=== PATIENT | female | born 1975 | race Caucasian/White ===

== ENCOUNTER 2021-03-24 13:55 | Emergency (ER) | payer OTHER, SELFPAY ==
[2021-03-24 15:08] VITALS: BP 150/64; PULSE 80; RESP 16; TEMP 36.8; O2SAT 100; BMI 27.4
[2021-03-24] MEDS: predniSONE 20 MG TABLET 40 MG PO (15:52)
[2021-03-24] MEDS: diphenhydrAMINE HCL 25 MG TABLET 50 MG PO (15:53)
[2021-03-24] MEDS: Famotidine 20 MG TABLET PO (15:53)
--- NOTE | 2021-03-24 16:02 | ED.GENADULT ---
HPI - General Adult General Chief complaint: General Medical Stated complaint: allergic reaction Time Seen by Provider: 03/24/21 15:45 Source: patient Mode of arrival: ambulatory Limitations: no limitations History of Present Illness HPI narrative: 46-year-old female here with itching rash to chest, back and neck for several hours. no pain. Patient denies any new medications, products, foods. No difficulty breathing, difficulty swallowing, abdominal cramping, vomiting or diarrhea. Related Data Previous Rx's Medication Instructions Recorded hydrocortisone 1 appl TOPICAL TID PRN #20 g 03/24/21 hydroxyzine HCl 25 mg PO TID PRN #10 tab 03/24/21 prednisone 40 mg PO DAILY #8 tab 03/24/21 Allergies Allergy/AdvReac Type Severity Reaction Status Date / Time acetaminophen Allergy Unknown UNKNOWN Unverified 08/18/20 14:54 [From TYLENOL PM] Antihistamines - Alkylamine Allergy Unknown UNKNOWN Unverified 08/18/20 14:54 [ANTIHISTAMINES - ALKYLAMINE] aspirin [ASPIRIN] Allergy Unknown HIVES Unverified 08/18/20 14:54 codeine [CODEINE] Allergy Unknown HIVES Unverified 08/18/20 14:54 From TYLENOL PM Allergy Unknown UNKNOWN Uncoded 08/18/20 14:54 Review of Systems Review of Systems: Yes all other systems are reviewed and are negative Constitutional: Constitutional: Reports no additional constitutional complaints, Denies body ache(s), Denies chills, Denies fever(s), Denies headache(s) and Denies weakness Eyes: Eyes: Reports no additional eye complaints and Denies change in vision ENT: Reports system reviewed and no additional complaints, except as documented, Denies dizziness, Denies headache(s), Denies nasal congestion, Denies nasal discharge and Denies neck pain Cardiovascular: Cardiovascular: Reports no additional cardiovascular complaints, Denies chest pain, Denies leg edema and Denies dyspnea Respiratory: Respiratory: Reports no additional respiratory complaints, Denies cough and Denies dyspnea Gastrointestinal: Gastrointestinal: Reports no additional gastrointestinal complaints, Denies abdominal pain, Denies diarrhea, Denies nausea and Denies vomiting Genitourinary: Genitourinary: Reports no additional female genitourinary complaints and Denies urinary incontinence Musculoskeletal: Musculoskeletal: Reports no additional musculoskeletal complaints, Denies back pain, Denies arthralgias, Denies joint swelling, Denies neck pain, Denies numbness and Denies tingling Integumentary/Breasts: Skin/Breast: Reports system reviewed and no additional complaints, except as docu and Reports rash Neurologic: Reports system reviewed and no additional complaints, except as documented, Denies Abnormal speech present, Denies dizziness, Denies headache(s), Denies numbness, Denies tingling and Denies weakness PMF Past Medical History Attestation statement: The following information was validated with the patient. Source: old records reviewed and nursing notes reviewed Social History Social History Advance Directives: No Advance Directives Information Provided: No Physical Exam Vital Signs: Vital Signs: Last Vital Signs Temp 98.2 F 03/24/21 15:08 Pulse 80 03/24/21 15:08 Resp 16 03/24/21 15:08 BP 150/64 H 03/24/21 15:08 Pulse Ox 100 03/24/21 15:08 Body Mass Index 27.4 Const: General: cooperative, healthy appearing, comfortable and no acute distress Orientation/consciousness: patient oriented x3 Limitations: no limitations HENMT: Head: Yes normal to inspection Ears: hearing grossly normal bilaterally General nose exam: Normal external nose present Face and sinus: Yes normal facial exam Mouth: Normal oral and palatal mucosa present Throat: Yes posterior oropharynx normal Eyes: General: appearance normal, both eyes and all related structures Pupils: Equal, round and reactive pupils present Neck: Neck: Yes normal visual inspection Chest: Chest palpation & inspection: normal inspection of the chest Resp: Effort & Inspection: normal respiratory effort Auscultation: clear to auscultation bilaterally Cardio: Rate: regular rate Rhythm: regular rhythm Peripheral pulses: Peripheral pulses 2+ throughout GI: Inspection: Yes normal to inspection Palpation (GI): Soft to palpation and nontender Auscultation: normal bowel sounds Back/Spine/Pelvis: Thoracic/Lumbar Spine: thoracic and lumbar spine normal to inspection Skin: Other: Urticarial rash noted around the neck, upper chest, upper back. No other areas noted General skin exam: no rashes or lesions noted Neuro: General: patient oriented x3, no focal motor deficits and normal sensation to monofilament Cranial nerves: Yes Equal, round and reactive pupils present Cognition (Neuro): normal cognition Speech: No Abnormal speech present Gait exam (Neuro): Normal gait present Motor exam (neuro): 5/5 motor strength present throughout Extrem: General: Yes normal to inspection Course Course Course Narrative: 46-year-old female with urticarial rash to trunk and neck times several hours. No airway involvement. Well appearing. Hemodynamically stable. Will treat with prednisone, Benadryl and Pepcid and reassessed 1700-Improving symptoms. Likely mild allergic reaction. Patient reports history of similar episodes. She has been seen by an nutrition club ambassador and has had testing which has been unremarkable. Will send home with some symptomatic relief.. Recommend keeping food diary, follow up outpatient with nutrition club ambassador. Reviewed worrisome signs and symptoms and when to return to the emergency department. Comfortable discharge home. Discharge Plan Discharge Clinical Impression: Allergic reaction Qualifiers: Encounter type: initial encounter Qualified Code(s): T78.40XA - Allergy, unspecified, initial encounter Patient Disposition: Home, Self-Care Instructions: General Allergic Reaction (ED) Additional Instructions: tide free and clear detergents fragrance, dye free soaps/products start prednisone tomorrow follow-up with nutrition club ambassador Prescriptions: New hydrocortisone 2.5 % cream 1 appl topical TID PRN (Reason: itching) Qty: 20 RF: 0 hydroxyzine HCl 25 mg tablet 25 mg PO TID PRN (Reason: itching) Qty: 10 RF: 0 prednisone 20 mg tablet 40 mg PO DAILY Qty: 8 RF: 0 Referrals: Katarzyna Wells TIMBER TRIMMER [Primary Care Provider] - 2 days
== END 2021-03-24 17:14 | disposition home or self-care (01) ==
PROVIDERS: Emergency Provider Emergency Medicine; PCP Nurse Practitioner
DX: L23.9 Allergic contact dermatitis, unspecified cause (principal); Z79.899 Other long term (current) drug therapy
CPT/HCPCS: 99283; Q0163

== ENCOUNTER 2023-11-13 07:12 | Outpatient (AMB) | payer OTHER, SELFPAY ==
--- NOTE | 2023-11-13 07:26 | A.OFFVIS_ITS ---
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 Information Interpreted: non-clinical & clinical Accompanied by: Self / Same As Patient Allergies acetaminophen [From TYLENOL PM] Allergy (Unknown, Unverified 11/13/23 07:29) UNKNOWN Antihistamines - Alkylamine [ANTIHISTAMINES - ALKYLAMINE] Allergy (Unknown, Unverified 11/13/23 07:29) UNKNOWN aspirin [ASPIRIN] Allergy (Unknown, Unverified 11/13/23 07:29) HIVES codeine [CODEINE] Allergy (Unknown, Unverified 11/13/23 07:29) HIVES From TYLENOL PM Allergy (Unknown, Uncoded 11/13/23 07:29) UNKNOWN Is last menstrual period known: Yes HPI HPI Comments History of Present Illness Details Presenting discussed different options of control including sterilization PFSH Medical History Heart murmur Asthma Surgical History Hx of lumpectomy Hx of appendectomy History of mandibular surgery Family History Mother Heart disease Diabetes HTN (hypertension) Maternal Grandmother HTN (hypertension) Brother Asthma Social History Household Members Other:: daughter Housing: Apartment Alcohol intake: current Alcohol intake frequency: holidays/special occasions only Patient Tobacco Use Status: Current everyday Tobacco user Cigarettes Per Day: 5 Years Smoked: 23 Current occupational status: employed 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[employer] Sexually active: Yes Sexual orientation: Straight/Heterosexual Gender identity: Female Review of Systems Const All systems reviewed & are unremarkable except as noted in HPI and below Reports as per HPI and Reports no additional complaints GI Reports no additional complaints Reports no additional complaints Physical Exam Vital Signs: Last Vital Signs BP 122/72 11/13/23 07:28 BMI result Body Mass Index 27.4 Assessment & Plan Assessment & Plan (1) Family planning: Code(s): Z30.09 - Encounter for other general counseling and advice on contraception Plan: Discussed with the patient the different options of control including control pills/Nuvaring, DMPA, different types of IUD ?s, sterilization and vasectomy. All the pros, cons, risks and benefits of each were discussed with the patient. Instructions given to the patient toto think about different options and get back to me. All questions answered, the patient understanding Coding Level of Care Code New Pt Level 3 (80324) Diagnoses Family planning Z30.09
[2023-11-13 07:28] VITALS: BP 122/72; BMI 27.4
== END 2023-11-13 07:54 | disposition home or self-care (01) ==
PROVIDERS: PCP Nurse Practitioner; Visit Provider Obstetrics & Gynecology
DX: Z30.09 Encounter for other general counseling and advice on contraception (principal)
CPT/HCPCS: 99203

== ENCOUNTER → 2023-11-13 07:12 | Outpatient (BNVA) | payer OTHER, SELFPAY | PROVIDERS: PCP Nurse Practitioner; Visit Provider Obstetrics & Gynecology ==

== ENCOUNTER 2024-05-05 13:31 | Emergency (ER) | payer OTHER, SELFPAY ==
--- NOTE | ~2024-05-05 | CT_ITS ---
EXAMINATION: CT ABDOMEN AND PELVIS WITHOUT CONTRAST CLINICAL INFORMATION: Rule out right kidney stone. COMPARISON: None available. TECHNIQUE: Multidetector volumetric imaging was performed from the superior aspect of the liver through the pubic symphysis. Sagittal and coronal reformatted images were obtained on the technologist workstation. This CT examination was performed using dose optimization techniques as appropriate, variously including the following: *Automated exposure control *Adjustment of mA and/or kV according to patient size (this includes techniques or standardized protocols for targeted exams where dose is matched to indication/reason for exam; i.e. extremities or head) *Use of iterative reconstruction technique DLP: 448 mGy-cm. FINDINGS: LUNG BASES: The visualized lung bases are unremarkable. LIVER, GALLBLADDER, AND BILIARY TREE: The liver is normal in size, shape, and attenuation. No focal hepatic lesion on noncontrast imaging. No biliary ductal dilatation is present. The gallbladder is unremarkable with no evidence of radiopaque gallstones, gallbladder wall thickening, or obvious pericholecystic inflammatory changes. PANCREAS: Unremarkable on noncontrast imaging. SPLEEN: Unremarkable. ADRENAL GLANDS: Unremarkable on noncontrast imaging. KIDNEYS AND URETERS: There is mild right-sided hydroureter ureteronephrosis due to a 0.2 cm calcification at the right ureterovesical junction with pixel attenuation values extending up to 162 Hounsfield units. The right kidney is mildly edematous compared to the contralateral side. No significant perinephric stranding is seen. No additional right renal or ureteral calculi are noted. The left kidney and left ureter are unremarkable. BLADDER: Decompressed and not well assessed. Aside from the right ureterovesical junction stone discussed above, the bladder is unremarkable. PELVIC VISCERA: Small amount of gas is seen in the vagina, likely related to exogenous introduction. Uterus and adnexa otherwise unremarkable.. GASTROINTESTINAL TRACT: There is a small retrocardiac hiatal hernia. The small and large bowel are decompressed. Scattered colonic diverticulosis is noted with no evidence of acute diverticulitis.. The appendix is not seen but no focal inflammatory process is seen in the right lower quadrant.. ABDOMINAL WALL: There is a small fat-containing umbilical hernia. LYMPH NODES, VASCULAR: Unremarkable. OSSEOUS STRUCTURES: Unremarkable. CT/CT abdomen pelvis wo IV con IMPRESSION: * Mild right-sided hydroureteronephrosis due to a 0.2 cm calcification at the right ureterovesical junction. * No additional renal or ureteral calculi seen. * Small retrocardiac hiatal hernia. * Small fat-containing umbilical hernia. * Colonic diverticulosis.
--- NOTE | 2024-05-05 13:49 | ED_ITS ---
HPI - General Adult General Chief complaint: Abdominal Pain Stated complaint: Kidney stone Time Seen by Provider: 05/05/24 17:14 Source: patient, RN notes reviewed and old records reviewed Mode of arrival: ambulatory Limitations: no limitations History of Present Illness ED Provider: Rogelio MENDOZA narrative: 49-year-old female who denies any past medical history presents for evaluation of right flank pain Patient reports she started with right flank pain that radiates to right lower abdomen 3 days ago on Saturday She reports that she frequently gets a sensation to urinate but ?only a little bit comes out each time. ? She describes a scratching sensation in her right lower abdomen She denies any previous abdominal surgeries Her current pain is a 7/ Denies any fevers, chills Denies any nausea, vomiting, diarrhea, constipation. Denies any vaginal bleeding or discharge Related Data Previous Rx's ?Medication ?Instructions ?Recorded ondansetron 4 mg disintegrating 4 mg PO Q8H PRN nausea and 05/05/24 tablet vomiting #20 tabs tamsulosin 0.4 mg capsule (Flomax) 0.4 mg PO DAILY #7 caps 05/05/24 tramadol 50 mg tablet 50 mg PO Q8H PRN pain #12 tabs 05/05/24 Allergies Allergy/AdvReac Type Severity Reaction Status Date / Time acetaminophen Allergy Unknown UNKNOWN Verified 05/05/24 13:54 [From TYLENOL PM] Antihistamines - Alkylamine Allergy Unknown UNKNOWN Verified 05/05/24 13:54 [ANTIHISTAMINES - ALKYLAMINE] aspirin [ASPIRIN] Allergy Unknown HIVES Verified 05/05/24 13:54 codeine [CODEINE] Allergy Unknown HIVES Verified 05/05/24 13:54 From TYLENOL PM Allergy Unknown UNKNOWN Uncoded 11/13/23 07:29 Review of Systems 2 Constitutional: Constitutional: Denies body ache(s), Denies chills and Denies fever(s) Eyes: Eyes: Denies blurry vision ENT: Denies sore throat Cardiovascular: Cardiovascular: Denies chest pain and Denies dyspnea Respiratory: Respiratory: Denies cough and Denies dyspnea Gastrointestinal: Gastrointestinal: Reports abdominal pain, Denies hematochezia, Denies nausea and Denies vomiting Genitourinary: Genitourinary: Denies dysuria and Reports flank pain C omments: Urinary frequency Musculoskeletal: Musculoskeletal: Denies back pain Integumentary/Breasts: Skin/Breast: Denies rash PMFSH Past Medical History Medical History Heart murmur Asthma Surgical History Hx of lumpectomy Hx of appendectomy History of mandibular surgery Family History Family History Mother Heart disease Diabetes HTN (hypertension) Maternal Grandmother HTN (hypertension) Brother Asthma Social History Social History Household Members Other:: daughter Housing: Apartment Alcohol intake: current Alcohol intake frequency: holidays/special occasions only Patient Tobacco Use Status: Current everyday Tobacco user Cigarettes Per Day: 5 Years Smoked: 23 Advance Directives: No Advance Directives Information Provided: No Do you have a plan to hurt others: No Plan Patient : No Current occupational status: employed 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 Gender identity: Female Physical Exam ED Vital Signs: Vital Signs - 24 hr 05/05/24 13:53 05/05/24 17:32 Temperature 97.7 F 98.0 F Pulse Rate 79 76 Respiratory Rate 16 16 Blood Pressure 103/51 L 139/61 Pulse Oximetry 98 98 Oxygen Delivery Method Room Air Room Air BMI result Body Mass Index 28.3 Const General: healthy appearing, comfortable, no acute distress, alert and awake Nutritional Appearance: well nourished Orientation/consciousness: patient oriented x3 HENMT Head: Yes normocephalic and Yes atraumatic Eyes Eyelids: Yes eyelids normal Conjunctivae: conjunctivae normal Sclerae: sclerae normal Corneas: corneas normal Pupils: Equal, round and reactive pupils present EOM: EOMs intact bilaterally Neck Neck: Yes full ROM Resp Effort & Inspection: normal respiratory effort, able to speak in complete sentences and not labored GI Inspection: No distended Palpation (GI): Soft to palpation, not firm, Tenderness to palpation present (GI) in the RLQ; with no rebound tenderness, no guarding and not rigid General: Yes CVA tenderness on the right; not on the left Back/Spine/Pelvis Back: CVA tenderness Skin General skin exam: elasticity normal Neuro General: patient oriented x3 Cranial nerves: Yes Equal, round and reactive pupils present and Yes Bilaterally intact EOM present Cognition (Neuro): normal cognition Extrem Other: Moving all extremities well without any obvious deformities Course Course Course Narrative: This is a Rapid Medical Examination (RME) performed by Arron Pearson PA-C in triage. Full HPI, ROS, assessment and treatment plan per primary provider in the Main ED. 49 yo female here for eval of right flank pain radiating to right groin x4 days. taking NSAIDS at home with some relief. reports increased urinary frequency. denies dysuria, hematuria. on exam, minimal right CVAT. Plan: labs, UA, CT Medications Administered Discontinued Medications Generic Name Dose Route Start Last Admin Trade Name Freq PRN Reason Stop Dose Admin Sodium Chloride 1,000 mls @ 999 mls/hr 05/05/24 17:30 05/05/24 19:26 Ns IV 05/05/24 18:30 Infused .Q1H1M AMPARO Infusion Ketorolac Tromethamine 30 mg 05/05/24 17:25 05/05/24 18:01 Ketorolac Tromethamine 30 Mg/Ml Vial IVPUSH 05/05/24 17:26 30 mg ONCE ONE Administration Medical Decision Making Medical Decision Making [facility] Narrative: 49-year-old female presents for evaluation of right flank and lower abdominal pain for the last 3 days. She is associated urinary frequency. Denies any janneth blood in the urine. Denies any history of kidney stones. She does have positive CVA tenderness on exam. She has no leukocytosis, vital signs are stable. Renal function is within normal limits. Her UA does have blood with no evidence of UTI. CT abdomen pelvis is pending, but clinically, the patient likely has obstructive uropathy. Less likely cystitis or pyelonephritis. Less likely acute appendicitis as the patient has no GI symptoms Differential Diagnosis Differential Diagnoses: The differential diagnosis associated with the presentation includes Obstructive uropathy Pyelonephritis Cystitis Acute appendicitis Constipation Diverticulitis Lab Data [facility] Lab Attestation statement: I reviewed the patient's lab results. No leukocytosis. The patient does have a very mild microcytic anemia. No previous for comparison. Her potassium is just below normal limits, otherwise electrolytes are within normal limits. Renal function within normal limits, LFTs within normal limits. 05/05/24 13:58 05/05/24 13:58 Labs: Lab Results 05/05/24 05/05/24 Range/Units 13:58 15:39 WBC 8.5 (4.8-10.8) X10*3/uL RBC 4.69 (4.20-5.50) X10*6/uL Hgb 11.5 L (12.0-16.0) g/dl Hct 36.0 L (37.0-47.0) % MCV 76.8 L (80.0-98.0) fL MCH 24.5 L (27.0-33.0) pg MCHC 31.9 (31.0-35.0) g/dl RDW 14.5 (11.0-16.0) % Plt Count 291 (160-400) X10*3/uL MPV 11.1 (9.4-12.3) fL Immature Gran % (Auto) 0.4 (0.0-0.4) % Neut % (Auto) 64.5 (45-73) % Lymph % (Auto) 26.7 (20-40) % [place] % (Auto) 6.4 (2-11) % Eos % (Auto) 1.4 (0-4) % Baso % (Auto) 0.6 (0-2) % Lymph # (Auto) 2.3 (1.2-4.9) X10*3/uL [place] # (Auto) 0.6 (0.1-1.2) X10*3/uL Eos # (Auto) 0.1 (0.0-0.4) X10*3/uL Baso # (Auto) 0.1 (0.0-0.2) X10*3/uL Abs Immat Gran (auto) 0.03 (0.00-0.03) X10*3/uL Absolute Neuts (auto) 5.5 (2.0-8.3) x10*3/uL Absolute Nucleated RBC 0.000 (0.0-0.012) X10*3/uL Nucleated RBC % (auto) 0.0 (0.0-0.2) /100WBC Sodium 142 (135-145) mmol/L Potassium 3.2 L (3.3-5.1) mmol/L Chloride 105 (96-108) mmol/L Carbon Dioxide 28 (22-29) mmol/L Anion Gap 12 (12-20) BUN 8 L (9-16) mg/dL Creatinine 0.78 (0.5-1.4) mg/dL Estim Creat Clear Calc 86.4 Estimated GFR > 60 Random Glucose 101 (60-115) mg/dL Calcium 9.3 (8.4-10.2) mg/dL Magnesium 1.9 (1.6-2.6) mg/dL Total Bilirubin 0.7 (0.0-1.0) mg/dL AST 12 (5-31) U/L ALT 8 (0-31) U/L Alkaline Phosphatase 57 (39-117) U/L Total Protein 7.3 (6.5-8.0) g/dL Albumin 4.3 (3.5-5.0) g/dL Lipase 30 (8-78) U/L Urine Color Yellow Urine Appearance Clear Urine pH 7.0 (5.0-9.0) Ur Specific [place] <= 1.005 (1.005-1.025) Urine Protein Negative (Neg-Trace) mg/dL Urine Glucose (UA) Negative (Negative) mg/dL Urine Ketones Negative (Negative) mg/dL Urine Blood Moderate (2+) H (Negative) Urine Nitrite Negative (Negative) Ur Leukocyte Esterase Trace H (Negative) Urine RBC 0-2 (0-2) /HPF Urine WBC 0-5 (0-5) /HPF Ur Squamous Epith Cells 3-5 (0-2) /HPF Urine Bacteria None Seen (None Seen) Hyaline Casts 0-2 (0-2) /LPF Urine Test NEGATIVE (NEGATIVE) Independent Interpretation I performed an independent interpretation of an: CT Scan (Agree with Radiology interpretation, small right UVJ stone) Radiology Impression Discussion of test interpretation with radiology: I have reviewed the radiologist's reading. Radiologist Impression: CT/CT abdomen pelvis wo IV con IMPRESSION: * Mild right-sided hydroureteronephrosis due to a 0.2 cm calcification at the right ureterovesical junction. * No additional renal or ureteral calculi seen. * Small retrocardiac hiatal hernia. * Small fat-containing umbilical hernia. * Colonic diverticulosis. Discharge Plan Discharge Clinical Impression: Acute right flank pain Patient Disposition: Home, Self-Care Instructions: Kidney Stones (ED) Additional Instructions: Your workup showed a small, 2 mm kidney stone that is almost at the exit right before your bladder. Take Flomax daily until your pain resolves Use ibuprofen as needed for pain Drink lots of fluids Use Zofran as needed for any nausea or vomiting You may take tramadol for more severe, breakthrough pain This may make you sleepy, do not drink alcohol or drive after taking it Prescriptions: New ondansetron 4 mg tablet,disintegrating 4 mg PO Q8H PRN (Reason: nausea and vomiting) Qty: 20 0RF tramadol 50 mg tablet 50 mg PO Q8H PRN (Reason: pain) Qty: 12 0RF tamsulosin [Flomax] 0.4 mg capsule 0.4 mg PO DAILY Qty: 7 0RF Print Language: Indonesian
[2024-05-05 13:53] VITALS: BP 103/51; PULSE 79; RESP 16; TEMP 36.5; O2SAT 98; BMI 28.3
[2024-05-05 14:02] LABS: MANUAL DIFF FLAG NO
[2024-05-05 14:06] LABS: Basophils Absolute Auto 0.1 X10*3/uL (0.0-0.2); Basophils Percent Auto 0.6 % (0-2); Eosinophils Absolute Auto 0.1 X10*3/uL (0.0-0.4); Eosinophils Percent Auto 1.4 % (0-4); Hemoglobin 11.5 g/dl (12.0-16.0); Imm Gran Abs Auto 0.03 X10*3/uL (0.00-0.03); Imm Gran Pct Auto 0.4 % (0.0-0.4); Lymphocytes Absolute Auto 2.3 X10*3/uL (1.2-4.9); Lymphocytes Percent Auto 26.7 % (20-40); Mean Corpuscular HGB Conc 31.9 g/dl (31.0-35.0); Mean Corpuscular Hemoglobin 24.5 pg (27.0-33.0); Mean Corpuscular Volume 76.8 fL (80.0-98.0); Mean Platelet Volume 11.1 fL (9.4-12.3); Monocytes Absolute Auto 0.6 X10*3/uL (0.1-1.2); Monocytes Percent Auto 6.4 % (2-11); Neutrophils Absolute Auto 5.5 x10*3/uL (2.0-8.3); Neutrophils Percent Auto 64.5 % (45-73); Platelet Count 291 X10*3/uL (160-400); Red Blood Count 4.69 X10*6/uL (4.20-5.50); Red Cell Distribution Width 14.5 % (11.0-16.0); White Blood Count 8.5 X10*3/uL (4.8-10.8)
[2024-05-05 14:20] LABS: Alanine Aminotransferase 8 U/L (0-31); Albumin Level 4.3 g/dL (3.5-5.0); Alkaline Phosphatase 57 U/L (39-117); Anion Gap 12 (12-20); Aspartate Amino Transferase 12 U/L (5-31); Bilirubin Total 0.7 mg/dL (0.0-1.0); Blood Urea Nitrogen 8 mg/dL (9-16); Calcium 9.3 mg/dL (8.4-10.2); Carbon Dioxide 28 mmol/L (22-29); Chloride 105 mmol/L (96-108); Creatinine Clr Calc Pharmacy 86.4; Estimated Glomerular Filt Rate > 60; Glucose Random 101 mg/dL (60-115); Lipase 30 U/L (8-78); Magnesium 1.9 mg/dL (1.6-2.6); Potassium 3.2 mmol/L (3.3-5.1); Sodium 142 mmol/L (135-145); Total Protein 7.3 g/dL (6.5-8.0)
[2024-05-05 15:49] LABS: Appearance Urine Clear; Color Urine Yellow; Glucose Urine UA Negative (Negative); Leukocyte Esterase Urine Trace (Negative); Nitrite Urine Negative (Negative); Specific Gravity - Urine <= 1.005 (1.005-1.025); UMIC TRIGGER UACC YES; Urine Blood Moderate (2+) (Negative); Urine Ketones Negative (Negative); Urine Protein Negative (Neg-Trace)
[2024-05-05 15:51] LABS: UPreg QC Valid YES; Urine Pregnancy NEGATIVE (NEGATIVE)
[2024-05-05 16:11] LABS: Bacteria Urine None Seen (None Seen); Hyaline Casts Urine 0-2 /LPF (0-2); RBC Urine 0-2 /HPF (0-2); WBC Urine 0-5 /HPF (0-5)
[2024-05-05 17:32] VITALS: BP 139/61; PULSE 76; RESP 16; TEMP 36.7; O2SAT 98
[2024-05-05] MEDS: Ketorolac Tromethamine 30 MG/ML VIAL IVPUSH (18:01)
[2024-05-05] MEDS: 0.9 % Sodium Chloride 1,000 ML 999 ML IV (18:02)
--- NOTE | 2024-05-05 19:26 | PC.NURSE ---
Assumed care of pt. Pt lying on stretcher, on R side for position of comfort. Plan for discharge per provider./[id number]
[2024-05-05 19:55] VITALS: BP 100/62; PULSE 83; RESP 16; TEMP 36.5; O2SAT 100
[2024-05-05 19:59] VITALS: BP 100/62; PULSE 83; RESP 16; TEMP 36.5; O2SAT 100
== END 2024-05-05 20:01 | disposition home or self-care (01) ==
PROVIDERS: Physician Assistant Medical; Emergency Provider Internal Medicine; PCP Nurse Practitioner
DX: R10.9 Unspecified abdominal pain (principal); N20.0 Calculus of kidney
CPT/HCPCS: 36415; 74176; 80053; 81001; 81025; 83690; 83735; 85025; 96361; 96374; 99284; J1885

== ENCOUNTER 2025-03-13 05:47 | Emergency (ER) | payer OTHER, SELFPAY ==
[2025-03-13 05:57] VITALS: BP 105/69; PULSE 78; RESP 14; TEMP 36.7; O2SAT 99; BMI 27.4
[2025-03-13 06:41] VITALS: BP 105/69; PULSE 78; RESP 14; TEMP 36.7; O2SAT 99
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
== END 2025-03-13 06:41 | disposition home or self-care (01) ==
PROVIDERS: Emergency Provider Internal Medicine; PCP Nurse Practitioner
DX: S00.83XA Contusion of other part of head, initial encounter (principal); R51.9 Headache, unspecified; V43.52XA Car driver injured in collision with other type car in traffic accident, initial encounter; Y93.9 Activity, unspecified; Y92.410 Unspecified street and highway as the place of occurrence of the external cause; Y99.8 Other external cause status
CPT/HCPCS: 99282; 99283